=== PATIENT | female | born 1990 ===

== ENCOUNTER 2023-07-13 09:09 | Emergency (ER) | payer BC ==
[~2023-07-13] VITALS: Ht 160 cm; Wt 69.4 kg
[~2023-07-13 09:09] MED LIST: PHENERGAN25 MG RC; ZOFRAN ODT8 MG PO
[2023-07-13] MEDS ORDERED: NS 1,000 ML IV ONE ×2 (09:30→10:15)
--- NOTE | 2023-07-13 09:44 | NUR ---
0930 PATIENT TO ER FOR COMPLAINTS OF ALMOST PASSING OUT AT WORK. THIS NURSE CALLED TO ER TO RUN A MONITOR STRIP ON BABY. BABY FHT 140 BABY VERY ACTIVE. NO CONTRACTIONS ON MONITOR OR PALPATED.
[2023-07-13 10:05] LABS: BASO % 0.4 % (0.0-2.0); EOS % 0.4 % (0.0-4.0); GRAN # 5.4 K/mm3 (1.4-6.5); GRAN % 79.1 % (42.2-75.2); LYMPH % 14.6 % (20.0-51.0); MEAN CELL VOLUME 91 fl (80.0-100.0); MEAN CORPUSCULAR HGB CONC 35 g/dl (33.0-37.0); MEAN PLATELET VOLUME 10.3 fl (7.4-10.4); MONO # 0.3 K/mm3 (0.1-0.6); MONO % 4.9 % (1.7-9.3); PLATELET COUNT 154 K/mm3 (130-400); RED BLOOD COUNT 3.07 M/mm3 (4.10-5.30); REDCELL DISTRIBUTION WIDTH-CV 13.9 % (11.5-14.5)
[2023-07-13 10:06] LABS: HEMOGLOBIN 9.7 g/dl (12.5-16.0); MEAN CORPUSCULAR HEMOGLOBIN 32 pg (27-31)
[2023-07-13 10:26] LABS: ALBUMIN 2.8 gm/dL (3.5-5.0); BILIRUBIN,TOTAL 0.6 mg/dL (0.2-1.2); CALCIUM 8.2 mg/dL (8.4-10.2); CREATININE, serum 0.59 mg/dL (0.57-1.11); POTASSIUM 3.5 mmol/L (3.5-4.5)
[2023-07-13 11:55] VITALS: BP 101/74; PULSE 93; TEMP 98
== END 2023-07-13 11:55 | disposition home or self-care (01) ==
LOC: COL.ER 09:09
PROVIDERS: Personal Emergency Response Attendant
DX: O99.891 Other specified diseases and conditions complicating pregnancy (principal); R55 Syncope and collapse; O99.282 Endocrine, nutritional and metabolic diseases complicating pregnancy, second trimester; E86.0 Dehydration; Z3A.24 24 weeks gestation of pregnancy
CPT/HCPCS: J7030